=== PATIENT | female | born 1990 | race Caucasian/White ===

== ENCOUNTER → 2020-07-30 | Outpatient (CLI) | payer OTHER, MEDICAID | LOC: M.NUC 11:17 | PROVIDERS: ATTEND Internal Medicine Gastroenterology | DX: K29.70 Gastritis, unspecified, without bleeding (principal); K59.00 Constipation, unspecified ==

== ENCOUNTER 2020-11-22 08:07 | Emergency (ER) | payer OTHER, MEDICAID ==
[~2020-11-22] VITALS: Ht 175.3 cm; Wt 102.1 kg
[2020-11-22] MEDS ORDERED: NAPROSYN500 M1 PO (08:18)
[2020-11-22] MEDS ORDERED: ONDANSETRON ODT4 MG PO (08:18)
[2020-11-22] MEDS ORDERED: PHENERGAN 25 MG25 M1 PO (08:18)
[2020-11-22 08:43] VITALS: BP 111/72
== END 2020-11-22 08:43 | disposition home or self-care (01) ==
LOC: M.ERS 08:07
DX: R11.2 Nausea with vomiting, unspecified (principal); F12.10 Cannabis abuse, uncomplicated; Z98.51 Tubal ligation status; Z90.49 Acquired absence of other specified parts of digestive tract